=== PATIENT | female | born 1960 | race African-American/Black ===

== ENCOUNTER 2019-05-15 08:31 | Inpatient (IN) | payer OTHER ==
[2019-05-15] VITALS (8 sets, daily range): BP systolic 131–207; BP diastolic 87–122
[~2019-05-15] VITALS: Ht 154.9 cm; Wt 60.8 kg
[2019-05-15] MEDS ORDERED: LISINOPRIL10 MG PO (08:39)
[2019-05-15] MEDS ORDERED: METOPROLOL SUC100 MG PO (08:39)
[2019-05-15 09:05] LABS: HEMATOCRIT 37.3 % (37.0-47.0); HEMOGLOBIN 11.9 gm/dL (12.0-15.0); MCV 84.3 fL (80.0-100.0); PLATELET COUNT 204 thou/uL (150-400); RBC 4.42 mil/uL (4.20-5.00); RDW 15.3 % (10.5-14.5); WBC 5.9 thou/uL (4.0-11.0)
--- NOTE | 2019-05-15 09:10 | EKG ---
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 : 1960 Requested By: Aryan Weaver Order Number: [id number] MD: Ugo Keane Measurements Intervals [place] Rate: 84 P: 6 NC: 158 QRS: -3 QRSD: 84 T: 166 QT: 393 QTc: 465 Interpretive Statements Sinus rhythm Probable left atrial enlargement LVH with secondary repolarization abnormality No previous ECG available for comparison Electronically Signed On 05-15-2019 9:10:02 CDT by Ugo Keane [email or web address] ��������������������������������������������� <ELECTRONICALLY SIGNED> ���������������������������������������� By: Ugo Keane MD, [facility] ��������������������������������������������� 05/15/19 0910 0847 0847 Ugo Keane MD, FACC /EPI
[2019-05-15 09:13] LABS: CALCIUM 9.9 mg/dL (8.5-10.1); CREATININE 1.2 mg/dL (0.6-1.0); POTASSIUM 3.7 mmol/L (3.5-5.1)
[2019-05-15 09:19] LABS: APTT 26.1 Seconds (24.5-32.8); PROTIME 10.4 Seconds (9.3-11.4)
[2019-05-15 09:22] LABS: ALBUMIN 3.4 g/dL (3.4-5.0); MAGNESIUM 1.9 mg/dL (1.8-2.4); TOTAL BILIRUBIN 0.5 mg/dL (<0.1-1.0); TOTAL PROTEIN 8.2 g/dL (6.4-8.2); TROPONIN-I 0.38 ng/mL (<0.06)
--- NOTE | 2019-05-15 09:27 | NUR ---
RAAD RABAGO (DAUGHTER) [phone]
[2019-05-15 09:47] LABS: URINE BILIRUBIN NEGATIVE (Negative); URINE BLOOD NEGATIVE (Negative); URINE CLARITY CLEAR; URINE COLOR YELLOW; URINE GLUCOSE-RANDOM* NEGATIVE (Negative); URINE KETONES TRACE (Negative); URINE LEUKOCYTES-REFLEX NEGATIVE (Negative); URINE NITRITE-REFLEX NEGATIVE (Negative); URINE PROTEIN (DIPSTICK) 1+ (Negative); URINE SPECIFIC GRAVITY 1.015 (1.005-1.035)
[2019-05-15 09:53] LABS: AMP/METHAMP Negative (Negative); BARBITURATES Negative (Negative); BENZODIAZEPINES Negative (Negative); COCAINE Negative (Negative); METHADONE Negative (Negative); OPIATES Negative (Negative); PCP Negative (Negative)
[2019-05-15 09:53] LABS: ABSOLUTE NEUTROPHILS 3.1 thou/uL (1.4-8.2)
[2019-05-15 09:55] LABS: ANISOCYTOSIS SLIGHT
[2019-05-15 10:02] LABS: CASTS None Seen /LPF (None Seen); SQUAMOUS None Seen /LPF (0-3)
[2019-05-15 10:03] LABS: CRYSTALS None Seen /LPF (None Seen); URINE RBC None Seen /HPF (0-2)
[2019-05-15 10:04] LABS: URINE WBC-REFLEX 0-5 Rare /HPF (0-5)
[2019-05-15 10:05] LABS: BACTERIA-REFLEX None Seen /HPF (None Seen)
[2019-05-15 11:33] LABS: CHOLESTEROL 193 mg/dL (<200); HDL CHOLESTEROL 30 mg/dL (>40); LDL CHOLESTEROL 138 mg/dL (<100); TC:HDL 6.4 Ratio (Not establshd); TRIGLYCERIDE 127 mg/dL (<150); VLDL 25 mg/dL (<40)
--- NOTE | 2019-05-15 14:05 | 2DMMODE ---
[facility] [address] [place] [address] 2 D/M-MODE ECHOCARDIOGRAM Name: JANAK RABAGO Room #: 204-P [facility] IN [facility]#: [id number] ������������� Admission: 05/15/19 ������������� Attend Phys: Roberto Ugarte MD Discharge: ��� ������������� ��� Date of : 56 Date of Service: 05/15/19 1405 �� Report #: [id number] �������� ��������������������������������������������[id number] THIS REPORT FOR: //name// APPROVED REPORT Study performed: 05/15/2019 12:51:02 EXAM: Comprehensive 2D, Doppler, and color-flow Echocardiogram Patient Location: In-Patient Room #: 204 Status: routine BSA: 1.38 HR: 127 bpm BP: 107/70 mmHg Rhythm: NSR Other Information Study Quality: GoodAdequate Indications Hypertension/HDD 2D Dimensions RVDd: 26.54 mm IVSd: 13.10 (7-11mm) LVOT Diam: 18.64 (18-24mm) LVDd: 42.10 mm PWd: 14.14 (7-11mm) Ascending Ao: 33.62 (22-36mm) LVDs: 24.72 (25-40mm) Left Atrium: 35.73 (27-40mm) Aortic Root: 31.74 mm Volumes Left Atrial Volume (Systole) Single Plane 4CH: 36.07 mL Single Plane 2CH: 27.65 mL Aortic Valve AoV Peak Karlo.: 1.86 m/s AO Peak Gr.: 13.86 mmHg LVOT Max P.88 mmHg AO Mean Gr.: 5.18 mmHg LVOT Mean P.22 mmHg AO V2 Mean: 1.03 m/s LVOT Max V: 1.31 m/s AO V2 VTI: 29.63 cm LVOT Mean V: 0.83 m/s WHITNEY (VTI): 2.28 cm2 LVOT V1 VTI: 24.77 cm WHITNEY Vmax: 1.92 cm2 SV (LVOT): 67.57 mL [facility] [place] [address] [place] [address] 2 D/M-MODE ECHOCARDIOGRAM Name: JANAK RABAGO Room #: 204-P [facility] IN ..#: [id number] ������������� Admission: 05/15/19 ������������� Attend Phys: Roberto Ugarte MD Discharge: ��� ������������� ��� Date of : 56 Date of Service: 05/15/19 1405 �� Report #: [id number] �������� ��������������������������������������������[id number] Mitral Valve E/A Ratio: 0.6 MV Decel. Time: 235.33 ms MV E Max Karlo.: 0.70 m/s MV A Karlo.: 1.15 m/s MV PHT: 68.24 ms IVRT: 145.33 ms Pulmonary Valve PV Peak Karlo.: 0.96 m/s PV Peak Gr.: 3.66 mmHg Pulmonary Vein P Vein S: 0.54 m/s P Vein A: 0.32 m/s P Vein D: 0.30 m/s P Vein A Dur.: 114.2 msec P Vein S/D Ratio: 1.80 Tricuspid Valve TR Peak Karlo.: 2.64 m/s TR Peak Gr.: 27.95 mmHg Left Ventricle Left ventricle is grossly normal size. There is normal LV segmental wall motion. Mild concentric left ventricular hypertrophy. Left ventricular systolic function is normal. LVEF is 65-70%. Grade I - abnormal relaxation pattern. Right Ventricle The right ventricle is normal size. The right ventricular systolic function is normal. Atria Left atrium is mildly dilated. The right atrium size is normal. Aortic Valve The aortic valve is normal in structure. Trace aortic regurgitation. There is no aortic valvular stenosis. Mitral Valve The mitral valve is normal in structure. There is no mitral valve regurgitation noted. No evidence of mitral valve stenosis. Tricuspid Valve The tricuspid valve is normal in structure. Trace tricuspid regurgitation. Estimated PAP 31 mmHg. [facility] [address] [place] [address] 2 D/M-MODE ECHOCARDIOGRAM Name: JANAK RABAGO Room #: 204-P [facility] IN M.R.#: [id number] ������������� Admission: 05/15/19 ������������� Attend Phys: Roberto Ugarte MD Discharge: ��� ������������� ��� Date of : 56 Date of Service: 05/15/19 1405 �� Report #: [id number] �������� ��������������������������������������������[id number] Pulmonic Valve The pulmonary valve is normal in structure. There is no pulmonic valvular regurgitation. Great Vessels The aortic root is normal in size. The ascending aorta is normal in size. IVC is normal in size and collapses >50% with inspiration. Pericardium Trace pericardial effusion around right atrium. <Conclusion> Left ventricle is grossly normal size. Mild concentric left ventricular hypertrophy. Left ventricular systolic function is normal. Grade I - abnormal relaxation pattern. The right ventricle is normal size. Left atrium is mildly dilated. Trace aortic regurgitation. There is no mitral valve regurgitation noted. Trace tricuspid regurgitation. Estimated PAP 31 mmHg. ��������������������������������������������� <ELECTRONICALLY SIGNED> ���������������������������������������� By: Ry Mares MD ��������������������������������������������� 05/15/19 1405 1405 1405 Ry Mares MD /INF
--- NOTE | 2019-05-15 16:22 | NUR ---
PT ADMITTED TO CCU APPROX 1130 FROM ER. CONSENTS SIGNED. ADMISSION COMPLETE. ADMISSION STRIPS COMPLETE. VSS EXCEPT FOR ELEVATED BP, PROVIDERS AWARE. PT A&OX3. DROWSY. WILL CONTINUE TO MONITOR AND FOLLOW POC.
--- NOTE | 2019-05-15 17:00 | NUR ---
Case opened to follow for dc planning needs. Pt admitted with r/o cva. Neuro, cardiology, rehab medicine, and PT/OT/ST evals are pending. House Admin visited with the pt and her dtr Shilpa at bedside. Pt drowsy and knodding off during our conversation. The pt and her dtr have lived together for approx 12 years. The pt was working until last Jul 2018 when she had a stroke. She was dc'd to home with the dtr and family has been trying to help her with a [place] disability and [place]. The pt's dtr believes her ssd was approved but has not heard anything on her medicaid. The pt's sister Eva has been helping with this. Apparently the pt was getting her blood pressure meds from [facility] and normally lets her dtr know when she is out. Her dtr did not realize that she has been out for approx 3-4 weeks. She works Sunday thru 10 hr shifts and the pt is normally home alone. She walks with the meléndez or furnature and occassionaly with a cane or walker. The pt's sister takes her to her dr [facility]. [facility] [place] [place] [place] [place] [facility] They live in an apt with 2 steps in from the back side and 8-12 in the front. The pt has a hx of OR and previous strokes. Dtr tearful and feeling guilty about the pt not having her meds. Support provided. Pt will likely need some level of rehab and possible ltc placement. Dtr is also requesting a letter for her employer. Will f/u in the am.
--- NOTE | 2019-05-15 18:25 | NUR ---
ASSUMED CARE FOR PT ON ARRIVAL TO UNIT. ASSESSMENTS CHARTED. MEDS GIVEN PER NOV. A&OX4. VSS EXCEPT FOR ELEVATED BP WHICH PROVIDER IS AWARE OF. NO C/O PAIN. SWALLOW EVALUATED BY SPEECH, DIET CHANGED ACCORDINGLY. MEDS GIVEN IN PUDDING. PT USES BEDPAN. FAMILY VISITED IN EVENING AND SPOKE WITH CM. WILL CONTINUE TO MONITOR AND FOLLOW POC.
[2019-05-16 03:47] VITALS: BP 195/131
--- NOTE | 2019-05-16 05:13 | NUR ---
ASSESSMENT DOCUMENTED.PT A/OX4,MORE AWAKE,CALLS APPROPRIATELY.SLURRED SPEECH W/ FACIAL DROP.VSS.HYPERTENSIVE.MANAGED WITH MEDS,PT STATES HER BLOOD PRESSURE IS ALWAYS HIGH AND SHE HAS BEEN OUT OF BP MEDS.USES BEDPAN.PT STATES THAT SHE USES A WALKER AT HOME TO AMBULATE.DENIES PAIN OR ANY DISTRESS AT THIS TIME
[2019-05-16 05:28] LABS: ABSOLUTE NEUTROPHILS 3.1 thou/uL (1.4-8.2); BASOPHILS 0.7 % (0.0-2.0); EOSINOPHILS 0.4 % (0.0-3.0); HEMATOCRIT 33.3 % (37.0-47.0); HEMOGLOBIN 10.8 gm/dL (12.0-15.0); LYMPHOCYTES 38.1 % (24.0-44.0); MCH 27.3 pg (26.0-34.0); MCHC 32.5 g/dL (28.0-37.0); MCV 84.1 fL (80.0-100.0); MONOCYTES 7.6 % (1.0-8.0); PLATELET COUNT 179 thou/uL (150-400); POLYS 53.2 % (36.0-66.0); RBC 3.96 mil/uL (4.20-5.00); RDW 15.1 % (10.5-14.5); WBC 5.8 thou/uL (4.0-11.0)
[2019-05-16 05:45] LABS: MAGNESIUM 1.8 mg/dL (1.8-2.4); TROPONIN-I 0.44 ng/mL (<0.06)
[2019-05-16 05:51] LABS: POTASSIUM 2.9 mmol/L (3.5-5.1)
--- NOTE | 2019-05-16 07:42 | NUR ---
ASSUMED CARE OF PT APPROX 0715, TECH CAME TO ME AT 0742 TO SAY B/P [id number]. THIS WAS REPORTED OFF, NO HYDRALAZINE GIVEN YET A.M. B/P MEDS GIVEN BY FUR LINER. WILL ADM HYDRALAZINE AND RECHECK. DENIES ANY NEEDS AT THIS TIME
[2019-05-16 07:43] VITALS: BP 216/168
--- NOTE | 2019-05-16 09:14 | NUR ---
WOUND CARE HIGH RISK MAKENNA ASSESSMENT; ASSESSMENT WAS COMPLETED NO WOUNDS IDENTIFIED. THE PATIENT IS SOMEWHAT LIMITED AND LOW ENERGY. LOW BODY WT. SHE IS EATING AND THE ALBUMIN IS 3.4. THE PATIENT IS ALERT BUT ONLY NODDED HER HEAD FOR ME. RECOMMENDATION; CONSULT FIRE ASSISTANT, AND ADD A LOW AIR LOSS PUMP TO THE BED. DISCUSSED WITH EVERETTE
[2019-05-16 11:32] VITALS: BP 136/83
--- NOTE | 2019-05-16 13:50 | NUR ---
PATIENT HAS QUALIFYING DX FOR 5N, BUT MUST BE ABLE AND WILLING TO PARTICIPATE WITH THERAPIES. NO BED AVAILABLE FOR ACUTE REHAB UNTIL 05/20/19. WILL CONTINUE TO FOLLOW. THANK YOU FOR THIS REFERRAL.
--- NOTE | 2019-05-16 14:03 | NUR ---
[facility] Director visited with the pt's dtr Chad regarding dc planning efforts. 5N darryl initiated and they are following. No bed available til early next week. [facility] was able to visit with the pt/dtr. The pt has a [place] medicaid application on file with the state pending one verification. [facility] will help resolve this and the pt should be approved. Dtr concerned about the pt's over all condition and what her care needs will be at dc as she works fulltime. Options for hh, hbcs, and ltc placement discussed. Will follow.
[2019-05-16 16:53] VITALS: BP 161/103
[2019-05-16 19:56] VITALS: BP 162/108
[2019-05-17] VITALS (7 sets, daily range): BP systolic 135–212; BP diastolic 87–153
--- NOTE | 2019-05-17 05:50 | NUR ---
ALERT WITH CONFUSION.TRIES TO GET OUT OF BED TWICE THIS SHIFT.INCONTINENT. REPOSITIONED.BP ELEVATED.HYDRALAZINE GIVEN.IV FLUIDS INFUSING.MONITOR SHOWS SINUS RHYTHM.WILL CONTINUE POC.
--- NOTE | 2019-05-17 08:47 | NUR ---
PT IS A&0X4, VERY QUIET W/SPEECH, NEEDS TIME TO SPEAK. FOOD SET UP AND OPEN EVERYTHING. FAMILY VISITS ALL DAY. IVF RUNNING AND PT CAN USE CALL LIGHT AND ALSO KNOWS TO HIT THE SIDE OF THE BED IF SHE FEELS TOO WEAK TO HIT BUTTON. SEE SEPARATE INTERVENTIONS FOR ASSESSMENTS
--- NOTE | 2019-05-17 17:08 | HC ---
[facility] [place] [address] CONSULTATION Name: JANAK RABAGO Room #: 204-P ADM IN M.R.#: [id number] Admission: 05/15/19 ������������������ Attend Phys: Roberto Ugarte MD Discharge: ������������������ Date of : 56 Report #: [id number] THIS REPORT FOR: //name// CC: Roberto Ugarte [facility] unknown DATE OF SERVICE: 05/15/2019 HISTORY OF PRESENT ILLNESS: This is a 59-year-old female patient who was seen by me for the possibility of stroke. The history is not clear. The patient does not provide any history. One of the daughters is there, she provides some history, but history is not very clear. They said the patient had four strokes. The last one was in August. They noticed that the patient is unable to walk properly and was weaker what they think was on the right side, but I am not certain. They took her to Emergency Room at [facility]. Apparently, they dismissed this patient. I do not have any record from the [facility]. The family brought the patient to Emergency Room here after getting dismissed from [facility] and she was seen here. She has an obvious left facial palsy. They cannot tell me how much is new and how much is old. They said some was there, but this is definitely worse. I cannot tell in this patient what medication she is on. I have asked them to get the record from [facility]. REVIEW OF SYSTEMS: Only from the record. This patient has numerous medical problems. She had 4 strokes in the past. She has a history of hypertension, coronary artery disease, tobacco abuse, and the things have become worse for her according to the patient. She also apparently has chronic kidney disease. GFR is only 46. REVIEW OF SYSTEMS: A 14-point review of system was carried out as much as I can, with the family and this was a relevant 14-point review of system, the best we can get. PAST MEDICAL HISTORY: Positive for 4 strokes. FAMILY HISTORY: Unavailable. SOCIAL HISTORY: She apparently smokes. PHYSICAL EXAMINATION: Limited. She opens her eyes sometime follow the commands. She has left-sided weakness. She does not cooperate with sensation testing. Cardiac examinations appear noncontributory. She does not appear to be in any respiratory difficulty. Blood pressure is 132/93, pulse is 91, temperature is 98.1. LABORATORY DATA: White count is 5.9. Her MRI and CT was reviewed. MRI [address] [address] CONSULTATION Name: JANAK RABAGO Room #: 204-P [facility] IN .R.#: [id number] Admission: 05/15/19 ������������������ Attend Phys: Roberto Ugarte MD Discharge: ������������������ Date of : 56 Report #: [id number] demonstrated multiple strokes. The blood pressure was high when she came in, it is better now. IMPRESSION: Multiple acute cerebrovascular accidents. RECOMMENDATIONS: We will get the records from the [facility]. We will see what they did. This patient needs extensive workup for anything which can be further done about the CVA, but she has so many vascular risk factors. I will look at the records from [facility] and we might put her on dual-platelet therapy and she will need workup for any atrial fibrillation as an outpatient. I have discussed this patient with hospitalist and I am going to call them again and discussed with them again. About 50 minutes of time was spent taking care of this patient today and majority of that time was spent counseling and coordinating. ��������������������������������������������� <ELECTRONICALLY SIGNED> ���������������������������������������� By: Orestes Khan MD ��������������������������������������������� 05/17/19 1708 1450 0039 Orestes Khan MD /nt
--- NOTE | 2019-05-17 17:09 | EEG ---
[facility] [place] [address] ELECTROENCEPHALOGRAM Name: JANAK RABAGO Room #: 204-P ADM IN M.R.#: [id number] ������������������ Admission: 05/15/19 ������������������ Attend Phys: Roberto Ugarte MD Discharge: ������������������ Date of : 56 Report #: [id number] ����������������������������������������������������������������� [id number] THIS REPORT FOR: //name// CC: Roberto LORENZANA unknown DATE OF SERVICE: 05/16/2019 This patient is being evaluated for altered mental status. EEG was done by placing the electrode by standard 10-20 system of electrode placement. Both referential and sequential montages were used for recording. Background activity in this patient's EEG is about 8 Hz and 30 microvolts. The patient went to sleep that is associated with bilateral slowing. Photic stimulation is unremarkable. Even in the background. The patient does have some bilateral slowing. IMPRESSION: This patient's EEG is intermixed with theta range slowing on both sides. That is a nonspecific abnormality, which can occur with dementia, encephalopathy, effect of psychotropic medication, etc. Clinical correlation recommended. ���������������������������������������� <ELECTRONICALLY SIGNED> ���������������������������������������� By: Orestes Khan MD ��������������������������������������������� 05/17/191708 1600 01 Orestes Khan MD /nt
[2019-05-18 04:59] LABS: HEMOGLOBIN 11.5 gm/dL (12.0-15.0); MCV 84.4 fL (80.0-100.0); RBC 4.27 mil/uL (4.20-5.00); RDW 15.3 % (10.5-14.5); WBC 5.1 thou/uL (4.0-11.0)
[2019-05-18 05:00] VITALS: BP 191/106
--- NOTE | 2019-05-18 05:09 | NUR ---
ASSUMED PT CARE AT 1900 WITH TASHIAILY AT BEDSIDE. PT IS ALERT AND ORIENTED. DENIES ANY NEED. PT IS LAYING IN BED. FALL PRECAUTION IN PLACE. ASSESSMENT COMPLETED AND DOCUMENTED. VITAL SIGNS STABLE EXCEPT EWITH ELEVATION OF BLOOD PRESSURE. PHYSICIAN AWARE. SCHEDULED MEDS ADMINISTERED TO PT. PT IS ON SWALLOW PRECAUTION. TOLERATED PO INTAKE WITH APPLESAUCE, NO FURTHER NEEDS REQUESTED AT THIS TIME. CONTINUE TO MONITOR.
[2019-05-18 05:15] LABS: CREATININE 1.2 mg/dL (0.6-1.0); POTASSIUM 3.3 mmol/L (3.5-5.1)
[2019-05-18 07:35] VITALS: BP 180/110
[2019-05-18 08:30] VITALS: BP 136/93
[2019-05-18 11:30] VITALS: BP 136/93
[2019-05-18 15:30] VITALS: BP 134/89
--- NOTE | 2019-05-18 18:41 | NUR ---
ASSUMED CARE AT SHIFT CHANGE, ALERT AND ORIENTED X4. DENIES ANY DISCOMFORT OR PAIN. ASKING TO DRINK REGULAR WATER, AND THIS NURSE AND FAMILY EXPLAINED TO THE PATIENT WHY SHE CAN'T HAVE REGULAR WATER. SR, BP WAS ELEVATED THIS AM MEDICATED AND NOW WNL. AND WILL CONTINUE WITH POC.
[2019-05-18 19:40] VITALS: BP 154/109
[2019-05-19 04:47] VITALS: BP 171/107
[2019-05-19 04:57] LABS: HEMATOCRIT 35.2 % (37.0-47.0); HEMOGLOBIN 11.3 gm/dL (12.0-15.0); MCH 27.1 pg (26.0-34.0); MCHC 32.1 g/dL (28.0-37.0); MCV 84.5 fL (80.0-100.0); RBC 4.16 mil/uL (4.20-5.00); RDW 15.3 % (10.5-14.5); WBC 6.1 thou/uL (4.0-11.0)
--- NOTE | 2019-05-19 05:03 | NUR ---
ASSUMED PT CARE AT 1900 WITH NO SIGN OF DISTRESS NOTED. PT IS ALERT AND ORIENTED. NO FAMILY AT BEDSIDE. ASSESSMENT COMPLETESD AND CHARTED. SCHEDULED MEDS ADMINISTERED TO PT. FALL PRECAUTION IN PLACE. VITAL SIGNS STABLE. DENIES ANY FURTHER NEEDS AT THIS TIME.
[2019-05-19 05:18] LABS: CALCIUM 9.5 mg/dL (8.5-10.1); CREATININE 1.1 mg/dL (0.6-1.0); POTASSIUM 3.4 mmol/L (3.5-5.1)
[2019-05-19 07:45] VITALS: BP 192/118
[2019-05-19 11:35] VITALS: BP 169/114
[2019-05-19 12:06] LABS: ANA INTERPRETATION Negative (Negative)
[2019-05-19 16:00] VITALS: BP 176/107
--- NOTE | 2019-05-19 16:10 | NUR ---
VSS BP REMAINS 170-192/107-118. MD AWARE, TAKING PO MEDS WELL AND SLOWLY WITH APPLESAUCE. UP IN CHAIR AND WALKED WITH PT, WITH GAIT BELT, PT UNSTEADY BUT TOOK 10-15 STEPS TO BSC. PT EATING 25-50% OF MEAL BY SELF AFTER SET UP, EATS 25% OF ENSURE PUDDING. PT STILL INCONTINENT AT KENDELL OF STOOL AND URINE. WILL CONTINUE TO MONITER AND CARE FOR PT PER PLAN OF CARE.
[2019-05-19 18:09] LABS: SYPHILIS AB Negative (Negative)
[2019-05-19 20:00] VITALS: BP 146/97
[2019-05-20 04:00] VITALS: BP 176/117
--- NOTE | 2019-05-20 05:05 | NUR ---
ASSUMED PT CARE AT 1900 WITH NO SIGN OF DISTRESS NOTED. PT IS ALERT BUT CONFUSED. NO FALL AT BEDSIDE. FALL PRECAUTION IN PLACE. PT IS SITTING IN CHAIR. PT IS TRANSFERRED FROM CHAIR TO BED. ASSESMENT COMPLETED AND DOCUMENT. VITAL SIGNS STABLE. SCHEDULED MEDS ADMINISTERED PT. PT TOLERATED PO INTAKE. DENIES ANY PAIN. NO FURTHER NEEDS REQUESTED AT THIS TIME.
[2019-05-20 05:22] LABS: CALCIUM 10.1 mg/dL (8.5-10.1); CREATININE 1.1 mg/dL (0.6-1.0); POTASSIUM 4.2 mmol/L (3.5-5.1)
[2019-05-20 07:45] VITALS: BP 191/121
--- NOTE | 2019-05-20 10:26 | NUR ---
TENATIVE PLAN FOR 5N TRANSFER TODAY HOWEVER PATIENT WITH INCREASE LETHARGY AND RESPONSIVENESS. PLAN TO HOLD TRANSFER PER PHYS.
[2019-05-20 11:50] VITALS: BP 172/114
[2019-05-20 13:01] LABS: HEMATOCRIT 38.1 % (37.0-47.0); HEMOGLOBIN 12.3 gm/dL (12.0-15.0); MCH 27.1 pg (26.0-34.0); MCHC 32.2 g/dL (28.0-37.0); MCV 84.3 fL (80.0-100.0); RBC 4.52 mil/uL (4.20-5.00); RDW 15.4 % (10.5-14.5); WBC 4.4 thou/uL (4.0-11.0)
[2019-05-20 14:30] VITALS: BP 152/101; BP 152/105
[2019-05-20 16:10] VITALS: BP 140/100
--- NOTE | 2019-05-20 17:13 | NUR ---
Patients transfer to 5N on hold. Sp with dtr. She is aware of dc on hold.
--- NOTE | 2019-05-20 18:45 | NUR ---
PT CARE ASSUMED APPROX 0700. PT DIFFICULT TO AROUSE THIS AM. WAS NOT RESPODING TO VERBAL CUES OR COMMANDS REPORTED BY PREVIOUS NURSE. DR CAMARENA WAS NOTIFIED AND ORDERED HEAT CT. NEURO WAS ALSO CONTACTED AND ORDERED MRI. NEURO ROUNDED AND CONFIRMED NEW INFARCTS WERE NOTED ON PT DIAGNOSTIC STUDIES. PT'S DAUGHTER-NEXT OF KIN WAS CONTACTED AND GIVEN CLINICAL UPDATE. SHE DENIES QUESTIONS OR CONCERNS AFTER. DUE TO PT CHANGE IN LOC, MEDS WERE CHANGED TO IV, IVF ORDERED, AND MEALS WERE HELD. PT BECAME MORE ALERT WHEN FAMILY ARRIVED AND SEEMED SAFE TO EAT. PT CONTINUES TO NOT SUSTAIN WAKEFULENESS VERY LONG BUT FOLLOWING COMMANDS AND RESPONDING APPROPRIATELY AT THIS TIME. WILL MONITOR. CARDENE GTT WAS NEVER STARTED AFTER ORDERED SINCE PT'T STARTING BP WAS ALREADY WITHIN [employer] PARAMATERS FOR GTT. WILL CONTINUE TO MONITOR. VSS AT THIS TIME. TURNING PT Q2HRS AND PRN. PT DENIES PAIN AND SOA. NO DISTRESS NOTED.
[2019-05-20 19:12] LABS: PROTIME 10.6 Seconds (9.3-11.4)
[2019-05-20 20:00] VITALS: BP 137/98
[2019-05-21] VITALS (10 sets, daily range): BP systolic 116–162; BP diastolic 85–117
[2019-05-21 02:57] LABS: CALCIUM 9.1 mg/dL (8.5-10.1); CREATININE 1.2 mg/dL (0.6-1.0); POTASSIUM 3.7 mmol/L (3.5-5.1)
--- NOTE | 2019-05-21 08:32 | NUR ---
PT REMAINED A&O THRU THE SHIFT, VSS, NO C/O PAIN, TURNING PRN AND Q2HRS, TOLERATING NECTER THICK LIQUIDS, LRG LIQUID STOOL/INCON'T, ASSISTS WITH TURNS, REPORT GIVEN TO THE NEXT SHIFT TO CON'T PPOC.
--- NOTE | 2019-05-21 14:54 | NUR ---
patient stable to transfer to 5N acute rehab today. her medicaid is active. 5N rec auth. Left dtr Shilpa a message to call unit to alert patient will dc today to 5N room [phone].
[2019-05-21] MEDS ORDERED: ACETAMINOPHEN325 M1 PO (16:28)
[2019-05-21] MEDS ORDERED: CHLORTHALIDONE25 MG PO (16:28)
[2019-05-21] MEDS ORDERED: AMLODIPINE BESY10 MG PO (16:28)
[2019-05-21] MEDS ORDERED: PANTOPRAZOLE SO40 M1 PO (16:28)
[2019-05-21] MEDS ORDERED: BENAZEPRIL HCL20 MG PO (16:28)
[2019-05-21] MEDS ORDERED: MIRALAX17 GM PO (16:28)
[2019-05-21] MEDS ORDERED: ATORVASTATIN CA80 MG PO (16:28)
--- NOTE | 2019-05-21 18:01 | NUR ---
ASSUMED PT CARE AT APPROXIMATELY 0700. PT A&O X3, NOT TO SITUATION. ASSESSMENT CHARTED. FALL PRECAUTIONS IN PLACE. PT STATES SHE DOES NOT HAVE PAIN. FREQUENT REORIENTATION. ASSISTING WITH MEALS AND ENCOURAGING PT TO EAT AND DRINK. VITAL SIGNS STABLE. BLOOD SUGARS STABLE. PT UP TO CHAIR THROUGHOUT SHIFT. Q2 TURNS. PT DISCHARGING TO 5N REHAB. TELE DC. PT RECEIVED DISCHARGE PAPERWORK AND EDUCATION. PT STATED UNDERSTANDING OF TRANSPORT TO 5 FOR REHAB. PT HAS INCREASED ALERTNESS COMPARED TO YESTERDAY. PT ALSO HAS AN INCREASED ENERGY LEVEL COMPARED TO YESTERDAY. PT'S BP MEDS HELD DUE TO BP LEVEL OUTSIDE BP PARAMETERS - DR. LOPEZ NOTIFIED. PT VS STABLE AND ASYMPTOMATIC. DR. LOPEZ STATED TO KEEP MONITORING PT'S BP AND TO HOLD BP MEDS. HEPARIN DRIP DC AT 1700. REPORT GIVEN TO RN ON 5N. RN DENIED HAVING FURTHER QUESTIONS.
== END 2019-05-21 18:26 | DRG 64 ==
LOC: ER 08:31 → 2N 10:35 → EROBS 10:35 → 2N 11:54
PROVIDERS: Emergency Medicine; Hospitalist; Nurse Practitioner; Psychiatry & Neurology Neurology; Psychiatry & Neurology Neuromuscular Medicine; ADMIT Hospitalist
DX: I63.411 Cerebral infarction due to embolism of right middle cerebral artery (principal); I21.A1 Myocardial infarction type 2; I67.4 Hypertensive encephalopathy; N17.9 Acute kidney failure, unspecified; R13.10 Dysphagia, unspecified; I16.0 Hypertensive urgency; I12.9 Hypertensive chronic kidney disease with stage 1 through stage 4 chronic kidney disease, or unspecified chronic kidney disease; E78.5 Hyperlipidemia, unspecified; N18.9 Chronic kidney disease, unspecified; R79.89 Other specified abnormal findings of blood chemistry; E87.6 Hypokalemia; I25.10 Atherosclerotic heart disease of native coronary artery without angina pectoris; F17.210 Nicotine dependence, cigarettes, uncomplicated; I25.2 Old myocardial infarction; Z95.5 Presence of coronary angioplasty implant and graft; Z86.73 Personal history of transient ischemic attack (TIA), and cerebral infarction without residual deficits; Z79.899 Other long term (current) drug therapy
CPT/HCPCS: 10081; 10112

== ENCOUNTER 2019-05-20 09:18 | Inpatient (IN) | payer OTHER ==
[~2019-05-20] VITALS: Ht 154.9 cm; Wt 59.9 kg
[~2019-05-20 09:18] MED LIST: LISINOPRIL10 MG PO; METOPROLOL SUC100 MG PO
[2019-05-21] MEDS ORDERED: BENAZEPRIL HCL20 MG PO (16:28)
[2019-05-21] MEDS ORDERED: AMLODIPINE BESY10 MG PO (16:28)
[2019-05-21] MEDS ORDERED: ACETAMINOPHEN325 M1 PO (16:28)
[2019-05-21] MEDS ORDERED: CHLORTHALIDONE25 MG PO (16:28)
[2019-05-21] MEDS ORDERED: MIRALAX17 GM PO (16:28)
[2019-05-21] MEDS ORDERED: ATORVASTATIN CA80 MG PO (16:28)
[2019-05-21] MEDS ORDERED: PANTOPRAZOLE SO40 M1 PO (16:28)
--- NOTE | 2019-05-22 05:43 | NUR ---
PATIENT ARRIVED ON UNIT AT 1820. PATIENT ALERT AND ORIENTED [place], PLACE AND TIME. ACCUCHECK WAS 100 SO NO INSULIN COVERAGE. BP WAS 153/97. PATIENT IS A FEEDER WITH [facility] ALTERED DIET AND NECTAR THICK LIQ. SHE IS TO USE NO STRAWS. DENIES PAIN. SLEPT OFF AND ON DURING NIGHT.
[2019-05-22 06:21] LABS: HEMATOCRIT 36.9 % (37.0-47.0); MCH 27.6 pg (26.0-34.0); MCHC 32.6 g/dL (28.0-37.0); MCV 84.6 fL (80.0-100.0); RBC 4.36 mil/uL (4.20-5.00); RDW 15.3 % (10.5-14.5); WBC 5.5 thou/uL (4.0-11.0)
[2019-05-22 06:26] LABS: CALCIUM 9.5 mg/dL (8.5-10.1); CREATININE 1.1 mg/dL (0.6-1.0); POTASSIUM 3.9 mmol/L (3.5-5.1)
[2019-05-22 06:31] LABS: INR 1.1
--- NOTE | 2019-05-22 09:27 | NUR ---
ASSUMED CARE AT 0700 THIS MORNING. PT. SITTING IN CHAIR, EYES CLOSED. LLL HAS SOME COURSE SOUNDS. THE REST OF THE LUNGS SOUND CLEAR. PT. DENIES PAIN. SHE IS VERY SLOW TO RESPOND TO QUESTIONS, BUT DOES ANSWER. SHE IS HERE FROM THE 2ND FLOOR WITH ACUTE MULTIPLE CVAS. NO MEDICATION ORDERS AT THIS WRITING. DR. MIGUE SOOD. SHE IS INCONTINENT OF BOWEL AND BLADDER.PT. IS A FALL RISK. OT WITH THE PATIENT AT THIS MOMENT.
[2019-05-22 10:10] VITALS: BP 117/84
--- NOTE | 2019-05-22 13:50 | NUR ---
chart review, cm tried to visit with pt x 2 she cont to close eye during visit. noted slow verbal 1 word communication. intro to cm, dcp and team meeting, pt stated " ok"/maureen and closed her eyes. per chart, she lives home with daughter since need assist rt past health hx, daughter deion works outside home. pt stay home alone, 2 steps to enter home from back and 8-12 steps to enter from front of home. used to use furniture and meléndez to hold onto to walk. will cont following as needed for dc needs.
[2019-05-22 19:36] VITALS: BP 129/77
[2019-05-23 19:30] VITALS: BP 133/94
--- NOTE | 2019-05-23 20:54 | NUR ---
PATIENT ALERT AND ORIENTED TO SELF AND LOCATION BUT SLOW TO RESPOND. BRUNO AT BEDSIDE THIS EVENING. PATIENT COOPERATIVE WITH POC.
--- NOTE | 2019-05-24 03:29 | NUR ---
PT IN BED AND RESTING QUIETLY. UP TO BSC WITH ASSIST. A+O TOOK HS MEDS W/O PROBLEM. BS 95 AT HS. SLEPT WELL THROUGH THE NIGHT.
[2019-05-24 08:20] VITALS: BP 108/81
--- NOTE | 2019-05-24 19:44 | NUR ---
ASSUMED CARE OF PT AT 0715. PT IS A&OX3-4 AND VITAL SIGNS ARE STABLE. PT UP TO ALL MEALS AND SUPERVISED FOR ALL PO INTAKE. ACCU CHECKS ACHS. DENIES PAIN AND PARTICIPATED IN SCHEDULED THERAPIES. FALL PRECAUTIONS IN PLACE AND NURSING WILL CONTINUE TO MONITOR.
[2019-05-24 19:47] VITALS: BP 124/74
--- NOTE | 2019-05-25 04:15 | NUR ---
PT ASSESSMENT DONE AND VSS. MEDS GIVEN AND WELL TOLERATED. FALL PRECAUTIONS IN PLACE. SLEEPING WELL. WILL CONTINUE TO MONITOR.
[2019-05-25 08:00] VITALS: BP 137/89
[2019-05-25 20:32] VITALS: BP 109/76
--- NOTE | 2019-05-25 20:55 | NUR ---
ASSUMED CARE OF PT AT 0715. PT IS A&0X3-4 AND VITAL SIGNS ARE STABLE. PT DENIES PAIN AND PARTICIPATED IN SCHEDULED THERAPIES. ACCU CHECKS D/C'D BY PROVIDER. PT UP TO ALL MEALS AND WAS APPROPRAITE WITH STAFF. FALL PRECAUTIONS IN PLACE AND NURSING WILL CONTINUE TO MONITOR.
--- NOTE | 2019-05-26 00:26 | NUR ---
PT ASSESSMENT DONE AND VSS. MED GIVEN AND WELL TOLERATED. FALL PRECAUTIONS IN PLACE. SLEEPING WELL. WILL CONTINUE TO MONITOR.
[2019-05-26 07:40] VITALS: BP 137/80
--- NOTE | 2019-05-26 12:48 | NUR ---
ASSUMED CARE AT 0700. PATIENT IS ALERT AND ORIENTEDX4. PATIENT HAS LEFT SIDED WEAKNESS. PATIENT HAS LEFT SIDED FACIAL DROOP. PATIENT IS UP IN W/C FOR MEALS. LUNGS ARE CLEAR. ABD IS SOFT WITH BSX4. PATIENT IS UP WITH WALKER AND GAIT BELT AND SBA. FALL AND SAFETY PROTOCOLS IN PLACE. DENIES ANY PAIN AT THIS TIME. CONTINUES TO PROGESSS SLOWLY TOWARDS D/C GOALS. WILL CONTINUE TO MONITER.
[2019-05-26 19:09] VITALS: BP 122/80
--- NOTE | 2019-05-26 21:05 | HC ---
[facility] [place] [address] CONSULTATION Name: JANAK RABAGO Room #: [facility] ADM IN M.R.#: [id number] Admission: 05/21/19 Attend Phys: Harry Grimes MD Discharge: Date of : 56 Report #: [id number] THIS REPORT FOR: //name// CC: Harry Grimes [facility] unknown DATE OF SERVICE: 05/24/2019 NEUROBEHAVIORAL STATUS EXAMINATION ATTENDING PHYSICIAN: Harry Grimes M.D. NURSING INSTRUCTOR: Bashir Cohen, PhD. CLINICAL PRESENTATION: The patient is a 59-year-old -Sammarinese female admitted to the rehabilitation unit at [facility] for comprehensive inpatient rehabilitation program to improve functional mobility, activities of daily living and self-care and mental status secondary to cerebrovascular accident. She presented to the hospital after a fall at her home. An MRI of the brain with and without contrast revealed multiple acute cerebrovascular accidents. During her hospital stay, she had a period of increased confusion and obtunded. A followup CT revealed a progression of the right middle cerebral artery stroke. Her assessment on admission to the rehab unit is multiple acute cerebrovascular accidents with progression of a right middle cerebral artery stroke, history of cerebrovascular accidents x 4 with facial droop, dysphagia, left-sided weakness, uncontrolled hypertension, hyperlipidemia, coronary artery disease with previous stent and tobacco abuse. A complete description of her medical condition, history and medication can be found in her medical record. Neuropsychological consultation was requested to provide assistance in the assessment of cognitive and emotional status and to provide recommendations and services. Prior to this most recent medical event, she was living with the assistance of her daughter in her home. The patient is reported to have been by herself several hours of the day as the daughter works outside the home. The patient reports having been a high school graduate and working in "[employer]." However, she is an uncertain historian as she was quite drowsy and intermittently unresponsive during the interview. TECHNIQUES UTILIZED: Clinical interview, review of medical records, staff consultation and behavioral observation, attempted mini mental status exam. EXAMINATION FINDINGS: The patient was very fatigued and sluggish during the interview. Her responses were minimal and she required much encouragement to maintain orientation. She frequently closed her eyes. I am uncertain as to [facility] [address] [place] [address] CONSULTATION Name: JANAK RABAGO Room #: 504-1 ADM IN M.R.#: [id number] Admission: 05/21/19 Attend Phys: Harry Grimes MD Discharge: Date of : 56 Report #: [id number] whether she was being cooperative or unable to maintain an awake level of responding. At this time, the patient is poorly oriented and very sleepy and fatigued. She does not maintain a sustained focus of attention. DIAGNOSTIC IMPRESSION: Delirium, acute, hypoactive. 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 Tobacco abuse by history. RECOMMENDATIONS: Continued neuropsychological consultation to assist in the assessment of cognitive status. At this time, her level of attention, concentration and orientation is inconsistent and variable, likely secondary to the delirium. A followup neuropsych assessment to clarify cognitive status will be of benefit when the patient is more alert and the delirium has resolved. At this time, she requires 24-hour care that includes management of medication, nutrition and finances. Family education will likely be necessary as the patient's previous level of functioning is going to be much different from her current presentation. Thank you very much for allowing me to provide the consultation on this patient. <ELECTRONICALLY SIGNED> By: Bashir Cohen, PhD 05/26/19 [id number] Bashir Cohen, PhD /nt
--- NOTE | 2019-05-27 00:55 | NUR ---
PT ALERT AND ORIENTED X 4 AT START OF SHIFT. CONFUSED THE NIGHT GOES ON. IMPULSIVE AT TIMES. LEFT SIDED WEAKNESS AND FACIAL DROOP NOTED. PT TOOK HS MEDS IN APPLESAUCE WITHOUT DIFFICULTY. PT DENIES PAIN OR DISCOMFORT. BED ALARM ON FOR SAFETY. PT APPEARS TO BE SLEEPING ON HOURLY ROUNDS.
[2019-05-27 07:30] VITALS: BP 102/72
--- NOTE | 2019-05-27 12:23 | NUR ---
ASSUMED CARE AT 0700. PATIENT IS ALERT AND ORIENTED 2-3, WITH SOME CONFUSION AT TIMES AND SOME IMPULSIVENESS. PATIENT HAS SOME LEFT SIDED WEAKNESS R/T MULTIPLE CVA'S. UP TO THE DINING ROOM PER W/C FOR MEALS. FALL AND SAFETY PROTOCOLS IN PLACE. DENIES ANY PAIN. PATIENT TAKES MEDS WHOLE IN APPLESAUCE. PATIENT IS UP WITH ASSIST OF 1 STAFF AND GAIT BELT AND WALKER TO W/C. PATIENT CONTINUES TO PROGESS TOWARDS D/C GOALS. WILL CONTINUE TO MONITER.
--- NOTE | 2019-05-27 13:39 | NUR ---
team meeting, recommendation: re team, discuss with daughter to see if there is extra assistance at home while daughter works.
[2019-05-27 19:12] VITALS: BP 116/73
--- NOTE | 2019-05-28 01:07 | NUR ---
PT ALERT AND ORIENTED X 2. UP IN W/C DURING EVENING. TRANSFERRED TO BED AT HS WITH ASSIST X 1. INCONT OF URINE. PT TOOK HS MEDS IN APPLESAUCE WITHOUT DIFFICULTY. AMLODIPINE AND LISINOPRIL HELD AT HS PER PARAMETERS. LEFT SIDED WEAKNESS AND FACIAL DROOP. PT DENIES PAIN OR DISCOMFORT. BED ALARM ON FOR SAFETY. PT APPEARS TO BE SLEEPING ON HOURLY ROUNDS.
[2019-05-28 08:00] VITALS: BP 129/72
--- NOTE | 2019-05-28 10:00 | NUR ---
DISCHARGE PLANNING. ANTICIPATED DISCHARGE PLANNED FOR NEXT WEEK. PATIENT WILL NEED GOVERNMENT RELATIONS MANAGER CARE PLACEMENT AT DISCHARGE. PATIENT REFERRAL FAXED TO [facility] PER REQUEST. CALL PLACED TO SHIRIN AHUJA TO NOTIFY. AWAITING RESPONSE. FOLLOWING TO ASSIST.
--- NOTE | 2019-05-28 14:16 | NUR ---
ASSUMED CARE OF PT AT 0715. PT IS ALERT AND ORIENTED TO PERSON, PLACE AND TIME, VITAL SIGNS ARE STABLE. UP FOR ALL MEALS WITH 100% SUPERVISION. INCONTINENT OF BLADDER. DENIES PAIN AND PARTICIPATED IN SCHEDULED THERAPIES. MEDICAITONS CRUSHED IN PUREE, TOLERATED WELL. FALL PRECAUTIONS IN PLACE AND NURSING WILL CONTINUE TO MONITOR.
--- NOTE | 2019-05-28 14:39 | NUR ---
Patient participated in community reintegration on 05/28/19 with SPEE[facility] THERAPY. Refer to documentation by [facility]ERAP[facility].
[2019-05-28 19:45] VITALS: BP 146/94
--- NOTE | 2019-05-29 02:42 | NUR ---
ASSUMED CARE FROM DAY SHIFT PT ALERT TO SELF AND SITUATION BUT FORGETFUL AT TIMES AND ATTEMTED TO CLIMB OUT OF BED , ALARM ON FOR SAFETY , PT INCONTINENT OF URINE THIS SHIFT, SKIN INTACT. RESTING WELL THROUHGOUT HOURLY ROUNDS, WILL CONTINUE WITH CURRENT PLAN OF CARE.
[2019-05-29 05:50] LABS: ABSOLUTE NEUTROPHILS 3.5 thou/uL (1.4-8.2); BASOPHILS 0.9 % (0.0-2.0); EOSINOPHILS 1.2 % (0.0-3.0); HEMATOCRIT 33.1 % (37.0-47.0); HEMOGLOBIN 10.8 gm/dL (12.0-15.0); LYMPHOCYTES 38.3 % (24.0-44.0); MCH 27.2 pg (26.0-34.0); MCHC 32.5 g/dL (28.0-37.0); MCV 83.7 fL (80.0-100.0); MONOCYTES 8.4 % (1.0-8.0); PLATELET COUNT 209 thou/uL (150-400); POLYS 51.2 % (36.0-66.0); RBC 3.96 mil/uL (4.20-5.00); RDW 15.1 % (10.5-14.5); WBC 6.8 thou/uL (4.0-11.0)
[2019-05-29 06:25] LABS: CALCIUM 9.8 mg/dL (8.5-10.1); CREATININE 1.1 mg/dL (0.6-1.0); POTASSIUM 4.4 mmol/L (3.5-5.1)
--- NOTE | 2019-05-29 09:46 | NUR ---
ASSUMED CARE OF PT AT 0715. PT IS ALERT AND ORIENTED TO PERSON, PLACE, AND TIME. VITAL SIGNS ARE STABLE. PT UP FOR 100% SUPERVISION WITH MEALS. DENIES PAIN AND IS PARTICIPATING IN THERAPIES. FALL PRECAUTIONS IN PLACE AND NURSING WILL CONTINUE TO MONITOR.
[2019-05-29 10:00] VITALS: BP 139/90
--- NOTE | 2019-05-29 13:06 | H ---
[facility] [place] [address] HISTORY AND PHYSICAL Name: JANAK RABAGO Room #: 504-1 ADM IN M.R.#: [id number] Admission: 05/21/19 Attend Phys: Harry Grimes MD Discharge: Date of : 56 Report #: [id number] THIS REPORT FOR: //name// CC: Harry Grimes [facility] unknown DATE OF SERVICE: 05/21/2019 HISTORY OF PRESENT ILLNESS: This is a 59-year-old -[place] female who presented to the hospital initially after a fall at home. She was somnolent on arrival. Initial CT of the head was negative. Blood pressure was elevated on arrival. MRI of the head did reveal multiple acute cerebrovascular accidents. She was seen by Neurology, Cardiology and Geriatrics. During her hospital stay, she had a period of increased confusion and was obtunded. Followup CT of the head shows progression of the RMCA stroke. The patient required heparin IV initially when she was unable to take oral. She has been transitioned to Xarelto as she is more awake and able to take p.o. Cardiology plans for a 30-day event monitor outpatient. Due to her debility, she is now admitted to acute inpatient rehabilitation for physical, occupational and speech therapies. Today, the patient denies headache or dizziness or blurred vision. She denies cough or shortness of air. She denies abdominal pain, nausea or constipation. She denies dysuria. She denies any arthritic pain. She reports the appetite is so-so. PAST MEDICAL HISTORY: CVA x 4, hypertension, renal disease, vascular disease, tobacco abuse, coronary artery disease, history of medication noncompliance. SOCIAL HISTORY: Prior status, the patient was living at home with her daughter. She is alone during the daytime when the daughter works 4 days a week. She utilized a cane or a front wheel walker as needed, but mostly utilized furniture around the home. I am not clear on what deficits she had from previous CVAs. The patient was independent with ADLs and the IADLs were provided. CODE STATUS: Full code. ALLERGIES: No known drug allergies. CURRENT MEDICATIONS: Aspirin 81 mg daily, Xarelto 15 mg daily, chlorthalidone 12.5 mg daily, Norvasc 10 mg daily, Lipitor 80 mg at bedtime, magnesium 64 mg twice a day, metoprolol succinate 100 mg daily, Protonix 40 mg daily, insulin sliding scale a.c. and at bedtime, lisinopril 20 mg twice a day, hydralazine p.r.n., MiraLax p.r.n., Tylenol p.r.n., nitroglycerin p.r.n. and Zofran p.r.n. HABITS: No illicit drug use, no alcohol use, is a tobacco smoker. REVIEW OF SYSTEMS: Remainder of 14-point review of systems negative except as [facility] [address] [place] [address] HISTORY AND PHYSICAL Name: JANAK RABAGO Room #: 504-1 ADM IN M.R.#: [id number] Admission: 05/21/19 Attend Phys: Harry Grimes MD Discharge: Date of : 56 Report #: [id number] listed in HPI. PHYSICAL EXAMINATION: VITAL SIGNS: Blood pressure 153/97, pulse of 76, temperature 98.1, 99% O2 sat on room air. GENERAL: She is awake, alert. She is oriented to person. She tells me she is in the hospital. I asked her why, she says to get better. She does not report that she has had a stroke. She is able to tell me that this is the month of May. HEENT: Head is normocephalic. Eyes: EOMs are mostly intact, some slow response and requires cueing, but can follow. No nystagmus. NECK: No lymphadenopathy. CARDIAC: Regular rate and rhythm, S1, S2. LUNGS: Some coarse rhonchi on the left lower lobe especially, otherwise clear on the right. ABDOMEN: Bowel sounds are positive. She is soft, nontender, nondistended. GENITOURINARY: No CVA tenderness. SKIN: Warm, dry and intact. NEUROLOGIC: She does have a facial droop. Her left upper extremity is weaker than the right. She has decreased left ux lead strength and decreased functional range of motion on the left upper Functional range of motion of the bilateral lower extremities. Negative Homans sign. No calf tenderness, no edema. Sit to stand with mod assist, mod assist to walk 10 feet with front-wheeled walker. Bed mobility, max assist. Lower extremity dressing, dependent. Bathe is max assist. PSYCHIATRIC: Flat affect. Short one-word answer responses. LABORATORY DATA: From 05/22/2019, sodium 139, potassium 3.9, BUN 15, creatinine 1.1. WBC is 5.5, hemoglobin 12, hematocrit 36.9, platelets 215. ASSESSMENT: 1. Multiple acute cerebrovascular accidents with progression of RMCA stroke, history of cerebrovascular accidents x 4, facial droop. 2. Dysphagia. 3. Left-sided weakness. 4. Uncontrolled hypertension. 5. Hyperlipidemia. 6. Coronary artery disease with previous stent. 7. Tobacco abuse. PLAN: The patient has been admitted to acute inpatient rehabilitation for physical, occupational and speech therapies. She will have Neurology, Cardiology, Hospitalist and Geriatrics continue to follow the patient on the Rehab Unit. She will have a team conference next Sunday with Social Work Services following for discharge planning needs. To monitor that left lower lobe, we may need to do a followup chest x-ray. We will defer to Hospitalist [facility] [address] [place] [address] HISTORY AND PHYSICAL Name: JANAK RABAGO Room #: 504-1 ADM IN M.R.#: [id number] Admission: 05/21/19 Attend Phys: Harry Grimes MD Discharge: Date of : 56 Report #: [id number] services for further medical management. She has anticoagulation and SCDs for further prophylaxis. Please see complete orders. <ELECTRONICALLY SIGNED> By: SETH Mane 05/29/19 [id number] SETH Mane /nt
--- NOTE | 2019-05-29 14:00 | NUR ---
sid here to visit with monika and shabbir about medicaid and no rehab benefits. sid is able to accept when dc from acute rehab. monika and shabbir completed dpoa paper work and was notarized here on acute rehab.
--- NOTE | 2019-05-29 15:41 | NUR ---
I have reviewed the documentation by EMIR Carrington from 05/29/19 to 05/29/19 and I concur with it. DENEEN COE
--- NOTE | 2019-05-29 23:19 | NUR ---
PT ASSESSMENT DONE AND VSS. MEDS GIVEN AND WELL TOLERATED. FALL PRECAUTIONS IN PLACE. PT TOLD THE STAFF THAT SHE WAS "GOING HOME TONIGHT". SLEEPING WELL. WILL CONTINUE TO MONITOR.
[2019-05-30 07:30] VITALS: BP 142/89
--- NOTE | 2019-05-30 16:22 | NUR ---
I have reviewed the documentation by EMIR Carrington from 05/30/19 to 05/30/19 and I concur with it. DENEEN COE
--- NOTE | 2019-05-30 18:29 | NUR ---
ASSUMED CARE OF PT AT 0715. PT IS ALERT AND ORIENTED TO PERSON, PLACE, AND TIME. VITAL SIGNS ARE STABLE. PT DENIES PAIN AND PARTICIPTED IN THERAPIES. PT UP TO ALL MEALS WITH FULL SUPERVISION. FALL PRECAUTIONS IN PLACE AND NURSING WILL CONTINUE TO MONITOR.
[2019-05-30 19:05] VITALS: BP 124/66
--- NOTE | 2019-05-30 22:37 | NUR ---
PT ASSESSMENT DONE AND VSS. MEDS GIVEN AND WELL TOLERATED. FALL PRECAUTIONS IN PLACE. SLEEPING WELL. WILL CONTINUE TO MONITOR.
[2019-05-31 08:00] VITALS: BP 143/83
[2019-05-31 09:39] LABS: URINE BILIRUBIN NEGATIVE (Negative); URINE BLOOD NEGATIVE (Negative); URINE CLARITY CLEAR; URINE COLOR YELLOW; URINE GLUCOSE-RANDOM* NEGATIVE (Negative); URINE KETONES NEGATIVE (Negative); URINE LEUKOCYTES-REFLEX TRACE (Negative); URINE NITRITE-REFLEX NEGATIVE (Negative); URINE PROTEIN (DIPSTICK) NEGATIVE (Negative); URINE SPECIFIC GRAVITY <= 1.005 (1.005-1.035); URINE UROBILINOGEN 0.2 E.U./dl (0.2-1.0)
--- NOTE | 2019-05-31 11:34 | NUR ---
ASSUMED CARE OF PT AT 0715. VSS ON RA. NIGHT NURSE SAID PT SLEPT BETTER WITH MELATONIN INCREASE TO 10MG. PT IS ALERT AND ORIENTED TO PERSON, PLACE, AND TIME. PT UP TO DINNING ROOM ATE 50% BREAKFAST WITH SUPERVION. WALKED WITH PT AND SITTING IN RECLINER AT THIS MOMENT. UP WITH MOD ASSIST WITH A WALKER AND GAITBELL. UA OBTAINED PER NIGHT NURSE SUGGESTED. PT INCONT BLADDER AT NIGHT AND URINATE A LOT AT NIGHT. AND SUGGEST EXTERNAL CATH IF POSSIBLE. ENCOURAGED PT TO CALL WHEN NEEDS TO GO TO [facility] AND WILL CONTINUE TO MONITOR NEEDS FOR EXTERNAL CATH. PT DENIES PAIN AND PARTICIPTED IN THERAPIES. OFFERED SUPPORTIVE CARE. ENCOURAGED PT TO VOICE HER NEEDS. DISCUSSED ABOUT CARE PLAN WITH PT. PT CONTINUE TO PARTICIPATE WITH THERAPY TOWARD DISCHARGE GOALS. FALL PRECAUTIONS IN PLACE AND NURSING WILL CONTINUE TO MONITOR.
[2019-05-31 19:30] VITALS: BP 134/84
--- NOTE | 2019-06-01 00:45 | NUR ---
PT ALERT AND ORIENTED X 4, FORGETFUL. LEFT SIDED WEAKNESS. PT TOOK HS MEDS IN APPLESAUCE WITHOUT DIFFICULTY. PT DENIES PAIN OR DISCOMFORT. BED ALARM ON FOR SAFETY. PT APPEARS TO BE SLEEPING ON HOURLY ROUNDS.
[2019-06-01 07:30] VITALS: BP 146/79
--- NOTE | 2019-06-01 09:57 | NUR ---
ASSUMED CARE OF PT AT 0715. PT IS A&OX4, FORGETFUL, VITAL SIGNS ARE STABLE. DENIES PAIN, WORKIING WITH NURSING STAFF ON AMBULATION AND TRANSFERS. UP FOR ALL MEALS WITH 100% SUPERVISION AT ALL MEALS. TURN AND REPOSITION Q2H WITH TOILETING. FALL PRECAUTIONS IN PLACE. NURSING WILL CONTINUE TO MONITOR.
[2019-06-01 19:29] VITALS: BP 124/63
--- NOTE | 2019-06-01 22:28 | NUR ---
PT ASSESSMENT DONE AND VSS. MED GIVEN ORDERED AND WELL TOLERATED. FALL PRECAUTIONS IN PLACE. SLEEPING. WILL CONTINUE TO MONITOR.
[2019-06-02 07:10] VITALS: BP 135/70
--- NOTE | 2019-06-02 10:58 | NUR ---
ASSUMED CARE OF PT AT 0715. PT IS A&OX4, FORGETFUL, VITAL SIGNS ARE STABLE. DENIES PAIN AND PARTICIPATED IN SCHEDULED THERAPIES. UP FOR ALL MEALS WITH 100% SUPERVISION AT ALL MEALS. FALL PRECAUTIONS IN PLACE AND NURSING WILL CONTINUE TO MONITOR.
--- NOTE | 2019-06-02 18:14 | NUR ---
I have reviewed the documentation by CÉSAR BROWNING from 06/02/19 to 06/02/19 and I concur with it. MARJORIE STEVEN
[2019-06-02 19:00] VITALS: BP 111/85
--- NOTE | 2019-06-02 21:50 | NUR ---
PT ASSESSMENT DONE AND VSS. MED GIVEN AND WELL TOLERATED. FALL PRECAUTIONS IN PLACE. SLEEPING. WILL CONTINUE TO MONITOR.
[2019-06-03 08:30] VITALS: BP 123/81
--- NOTE | 2019-06-03 11:13 | NUR ---
ASSUMED CARE OF PT AT 0715. VSS ON RA. INCONT BLADDER EARLY THIS AM. OT ASSISTED PT WITH BATH. UP TO DINNING ROOM ATE BREAKFAST WITH SPEECH THERAPIST. PT IS ALERT AND ORIENTED TO PERSON, PLACE, AND TIME. UP WITH MIN ASSIST WITH A WALKER AND GAITBELL. PT DENIES PAIN AND PARTICIPTED IN THERAPIES. OFFERED SUPPORTIVE CARE. ENCOURAGED PT TO VOICE HER NEEDS. REASSESSMENT PER CHART. MEDS GIVEN ONE WITH APPLE SAUCE WITHOUT DIFFICULTY. DISCUSSED ABOUT CARE PLAN WITH PT. PT CONTINUE TO PARTICIPATE WITH THERAPY TOWARD DISCHARGE GOALS. FALL PRECAUTIONS IN PLACE AND NURSING WILL CONTINUE TO MONITOR.
--- NOTE | 2019-06-03 12:23 | NUR ---
team meeting, recommendation: [facility]gan 06/06/19, [facility], family unable to care for her at home.
--- NOTE | 2019-06-03 12:50 | NUR ---
raw material planner sent updates to Pj at [facility] and notified Pj to expect them. Patient likely to dc from hospital 06/06/19
--- NOTE | 2019-06-03 17:41 | NUR ---
I have reviewed the documentation by CÉSAR BROWNING from 06/03/19 to 06/03/19 and I concur with it. MARJORIE STEVEN
[2019-06-03 19:50] VITALS: BP 122/79
--- NOTE | 2019-06-04 01:28 | NUR ---
ASSESSMENT: PT REMAIN ALERT AND ORIENT TIMES THREE, FORGETFUL AT TIMES. DENIES PAIN. TOLERATING PO INTAKE. NO BM THIS SHIFT. SLOW PROGRESS TOWARDS DC GOALS, WILL CONTINUE TO MONITOR.
[2019-06-04 07:07] VITALS: BP 135/86
--- NOTE | 2019-06-04 11:39 | NUR ---
ASSUMED CARE OF PT AT 0715. VSS ON RA. REPORTS SLEPT GOOD. ASSISTED PT UP TO WC TO GO TO DINNING ROOM FOR BREAKFAST. WET PAD BUT NOT MUCH. OT ASSISTED PT WITH BATH AFTER BREAKFAST, PHYSICAL THERAPIST WALKED WITH PT. PT IS TIRED AND RESTING IN RECLINER NOW. PT IS ALERT AND ORIENTED TO PERSON, PLACE, AND TIME. UP WITH MIN ASSIST WITH A WALKER AND GAITBELL. PT DENIES PAIN AND PARTICIPTED IN THERAPIES. OFFERED SUPPORTIVE CARE. ENCOURAGED PT TO VOICE HER NEEDS. REASSESSMENT PER CHART. MEDS GIVEN ONE WITH APPLE SAUCE WITHOUT DIFFICULTY. DISCUSSED ABOUT CARE MATT WITH PT. PT CONTINUE TO PARTICIPATE WITH THERAPY TOWARD DISCHARGE GOALS. FAL PRECAUTIONS IN PLACE AND NURSING WILL CONTINUE TO MONITOR.
--- NOTE | 2019-06-04 12:44 | NUR ---
medical planner sent updates to [facility], patient discharging tomorrow 06/05/19. DP contacted Pj at [facility] to let her know.
--- NOTE | 2019-06-04 14:04 | NUR ---
Patient participated in community reintegration on 06/04/19 with SPEECH THERAPY. Refer to documentation by SPEECH THERAPY.
--- NOTE | 2019-06-04 15:03 | NUR ---
I have reviewed the documentation by EMIR KIRAN from 06/04/19 to 06/04/19 and I concur with it. KANDICE HOWARD, PT, DPT
--- NOTE | 2019-06-04 15:05 | NUR ---
Pt PARTICIPATED IN COMMUNITY REINTEGRATION ON 06/04/[address], PLEASE REFER TO ST DOCUMENTATION
[2019-06-04 19:30] VITALS: BP 108/79
--- NOTE | 2019-06-05 02:34 | NUR ---
ASSUMED CARE FROM DAY SHIFT TO MOURE TALKATIVE THIS EVENING CHEERFUL , MEDICATION TAKEN AND TOLERATED WELL, DISCUSSED PLAN OF CARE AND APPEARED TO UNDERSTAND . RESTED WELL THROGUHOUT HOURLY ROUNDS WILL CONITNUE WITH CURRENT PLAN OF CARE.
[2019-06-05 06:05] LABS: ABSOLUTE NEUTROPHILS 3.4 thou/uL (1.4-8.2); BASOPHILS 0.9 % (0.0-2.0); EOSINOPHILS 1.7 % (0.0-3.0); HEMATOCRIT 31.7 % (37.0-47.0); HEMOGLOBIN 10.4 gm/dL (12.0-15.0); LYMPHOCYTES 34.1 % (24.0-44.0); MCH 27.5 pg (26.0-34.0); MCHC 32.7 g/dL (28.0-37.0); MCV 84.2 fL (80.0-100.0); MONOCYTES 9.4 % (1.0-8.0); PLATELET COUNT 215 thou/uL (150-400); POLYS 53.9 % (36.0-66.0); RBC 3.77 mil/uL (4.20-5.00); RDW 15.1 % (10.5-14.5); WBC 6.3 thou/uL (4.0-11.0)
[2019-06-05 06:19] LABS: MAGNESIUM 1.8 mg/dL (1.8-2.4); POTASSIUM 3.8 mmol/L (3.5-5.1)
[2019-06-05 08:00] VITALS: BP 130/85
--- NOTE | 2019-06-05 11:04 | H ---
[facility] [place] [address] HISTORY AND PHYSICAL Name: JANAK RABAGO Room #: 504-1 ADM IN .R.#: [id number] Admission: 05/21/19 Attend Phys: Harry Grimes MD Discharge: Date of : 56 Report #: [id number] THIS REPORT FOR: //name// CC: Harry Grimes [facility] unknown DATE OF SERVICE: 05/21/2019 HISTORY AND PHYSICAL/POSTADMISSION PHYSICIAN EVALUATION HISTORY OF PRESENT ILLNESS: Please see the full admission note dictation. The patient had been originally admitted on 05/15/2019 with an ischemic CVA and malignant hypertension. She had elevated troponin with EKG changes of ischemia. MRI of the brain revealed multiple subacute infarcts of the anterior and mid MCA distribution. She subsequently developed worsening cognitive function and a repeat MRI of the brain revealed extension of the right frontal MCA distribution ischemic cerebrovascular accident. She was treated with heparin, Cardene drip and had been felt to be unsafe to swallow. She has since improved as far as her cognition. Overall, is swallowing better working with therapies and felt to be ready for acute in-hospital inpatient rehabilitation. From a cardiac standpoint, she was felt to have sustained a type 2 [place]. She is now admitted for acute inpatient rehabilitation. Again, please see the full admission note dictation. PHYSICAL EXAMINATION: GENERAL: She is a pleasant, small statured, thin 59-year-old -Tong[place] female. She is alert, definite latency to her responses with some word finding difficulties and some slurring of speech. HEENT: Facies appeared symmetric. CHEST: Sounded clear to auscultation. CARDIOVASCULAR: Regular rate and rhythm. ABDOMEN: Bowel sounds positive, nontender. GENITOURINARY AND RECTAL: Deferred. EXTREMITIES: She has functional range of motion of the upper extremities with some decreased coordination bilaterally. Moves the right upper extremity a little better than the left upper extremity, strength is probably a grade 4-/5. Lower extremity strength is probably a grade 3+/5. She does have decreased balance. Transfers are mod assist. Gait has been max assist 35 feet with a front-wheeled walker. She is on mechanical soft nectar thickened liquid diet. ASSESSMENT: A 59-year-old -Tongan female with the following problems: 1. Multiple cerebrovascular accidents. These include multiple right frontal lobe infarcts. 2. Malignant hypertension. 3. Elevated troponin with EKG changes. 4. Acute renal insufficiency. [facility] [address] [place] [address] HISTORY AND PHYSICAL Name: AJNAK RABAGO Room #: 504-1 ADM IN .R.#: [id number] Admission: 05/21/19 Attend Phys: Harry Grimes MD Discharge: Date of : 56 Report #: [id number] 5. Hypokalemia. 6. Coronary artery disease. 7. Hyperlipidemia. 8. Tobacco abuse. 9. Past history of a cerebrovascular accident, 08/20/2018 with left-sided defect. PLAN: The patient has been admitted for acute in-hospital inpatient rehabilitation. From a postadmission physician evaluation perspective, there are no relevant changes since the preadmission screening. Please see the above review of prior and current medical and functional conditions and comorbidities. Please see the patient's previous and current functional status. As far as risk of complications, the patient has multiple medical comorbidities as noted above. Initial plan of care involves the interdisciplinary acute inpatient rehabilitation program with goal of maximizing her functional independence, so she can hopefully return back to her prior living situation. Prognosis is reasonably good. Would anticipate a length of stay is probably at least 2-3 weeks. Potential barriers would include her multiple medical comorbidities and decreased functional status. She has been living at home with her daughter and hopefully we can progress her in therapies, so that she can return back to the home setting. <ELECTRONICALLY SIGNED> By: Harry Grimes MD 06/05/19 [id number] Harry Grimes MD /nt
--- NOTE | 2019-06-05 11:04 | PLAN ---
[facility] [address] [place] [address] REHAB UNIT PLAN OF CARE Name: JANAK RABAGO Room #: 504-1 ADM IN M.R.#: [id number] Admission: 05/21/19 Attend Phys: Harry Grimes MD Discharge: Date of : 56 Report #: [id number] THIS REPORT FOR: //name// CC: Harry Grimes [facility] unknown DATE OF SERVICE: 05/23/2019 PROGRESS NOTE AND OVERALL PLAN OF CARE SUBJECTIVE: The patient seen back today in followup. She appears alert, eating breakfast with speech therapy in the dining area. Moving her right upper extremity and appears to be feeding herself quite well. Temperature 36.6, pulse 71, respirations 18, blood pressure 129/77. She has been working in therapies with transfers at a mod assist level, gait is 50 feet mod assist with a front-wheeled walker. In occupational therapy, lower body dressing is max assist, upper body is mod assist. She is on a mechanical soft diet with thin liquids. ASSESSMENT: 1. Multiple cerebrovascular accidents. 2. Malignant hypertension. 3. Elevated troponin with EKG changes. 4. Acute renal insufficiency. 5. Hypokalemia. 6. Coronary artery disease. 7. Hyperlipidemia. 8. Tobacco abuse. 9. Prior history of cerebrovascular accident, 08/20/2018 with left-sided defect. PLAN: The overall plan of care is based on the preadmission screen, post-admission physician evaluation and information garnered from therapy assessments. 1. Estimated length of stay is probably at least 2 weeks, potentially longer. 2. Medical prognosis is reasonably good. 3. Anticipated interventions includes the interdisciplinary acute inpatient rehabilitation program. 4. Anticipated functional outcomes would be for the patient to become modified independent with transfers, mobility, ADLs, cognition, communication, so she can return back to the home setting. 5. Discharge destination would ideally back to the home setting where she was living with her daughter. 6. Expected therapy by discipline includes PT, OT and speech 1 hour per day [address] [address] REHAB UNIT PLAN OF CARE Name: JANAK RABAGO Room #: 504-1 ADM IN ..#: [id number] Admission: 05/21/19 Attend Phys: Harry Grimes MD Discharge: Date of : 56 Report #: [id number] each five days a week throughout the duration of the acute inpatient rehabilitation stay. <ELECTRONICALLY SIGNED> By: Harry Grimes MD 06/05/19 [id number] Harry Grimes MD /[facility]
--- NOTE | 2019-06-05 12:46 | NUR ---
ASSUMED CARE OF PT AT 0715. PT IS A&OX4 AND VITAL SIGNS ARE STABLE. THERAPIES EXPRESSED CONCERN THAT PT HAS HAD DECLINES. PT ASSESSED AND NO CHANGES FROM LAST WEEK NOTED. PROVIDER CONTACTED ABOUT CONCERNS AND ORDERS GIVEN TO OBTAIN UA AT THIS TIME. HAT IN TOILET AWAITING SAMPLE. PT PARTICIPATED IN SCHEDULED THERAPIES, DENIES PAIN. UP WITH 100% SUPERVISION FOR ALL MEALS. FALL PRECAUTIONS IN PLACE AND NURSING WILL CONTINUE TO MONITOR.
--- NOTE | 2019-06-05 15:42 | NUR ---
I have reviewed the documentation by EMIR KIRAN from 06/05/19 to 06/05/19 and I concur with it. KANDICE HOWARD, PT, DPT
[2019-06-05 19:23] LABS: URINE BILIRUBIN NEGATIVE (Negative); URINE BLOOD NEGATIVE (Negative); URINE CLARITY CLEAR; URINE COLOR YELLOW; URINE GLUCOSE-RANDOM* NEGATIVE (Negative); URINE KETONES NEGATIVE (Negative); URINE LEUKOCYTES-REFLEX TRACE (Negative); URINE NITRITE-REFLEX NEGATIVE (Negative); URINE PROTEIN (DIPSTICK) NEGATIVE (Negative); URINE UROBILINOGEN 0.2 E.U./dl (0.2-1.0)
[2019-06-05 20:12] VITALS: BP 129/96
--- NOTE | 2019-06-06 07:13 | NUR ---
progress pt a/o x4 forgetful at times. Fall precautions in place, hourly rounding completed. vss pt incontinent of urine x1, no bm this shift. denies pain. tolerating pureed diet and thin liquids with swallow precautions maintained. plan to dc today.
--- NOTE | 2019-06-06 08:19 | NUR ---
chart copy requested. pt to dc to [facility]. pt can go by wheel chair van. bedside nurse to call report to [phone].
[2019-06-06] MEDS ORDERED: XARELTO15 MG PO (08:33)
[2019-06-06] MEDS ORDERED: MELATONIN5 M1 PO (08:33)
[2019-06-06] MEDS ORDERED: FLONASE 0.05%50 MCG NASAL (08:33)
[2019-06-06] MEDS ORDERED: BAYER CHEWABLE81 MG PO (08:33)
[2019-06-06] MEDS ORDERED: NORVASC5 MG PO (08:33)
[2019-06-06] MEDS ORDERED: CLARITIN10 MG PO (08:33)
[2019-06-06] MEDS ORDERED: BENAZEPRIL HCL20 MG PO (08:33)
[2019-06-06 09:41] VITALS: BP 139/86
[2019-06-06] MEDS ORDERED: NICOTINE TRANSD21 M1 TRANSDERM (09:45)
--- NOTE | 2019-06-06 10:32 | NUR ---
ASSUMED CARES AT 0700. PT IN BED VERY SLEEPY, LETHARGIC. WOKEUP AT 0830, A/O*4, FORGETFUL. SOFT SPOKEN AND CONTINUES TO HAVE DELAYED RESPONSES. DENIES PAIN. VITALS REMAIN STABLE. MRI DONE THIS AM, AWAITING RESULTS. PT CONTINUES TO BE INCONTINENT OF BLADDER, CHANGED AND NICHOLAS CARE COMPLETED. PT ATE 95% OF HER BREAKFAST THIS AM, SUPERVISION PROVIDED WITH ALL MEALS. UP WITH 1 MOD ASSIST, PIVOT TRANSFERS. PT TO DISCHARGE THIS AFTERNOON, WILL CALL REPORT TO RECEIVING FACILITY. Q1H VISUAL CHECKS. CALL LIGHT WITHIN REACH. FALL PRECAUTIONS IN PLACE
--- NOTE | 2019-06-06 13:50 | NUR ---
DISCHARGE PLANNED FOR TODAY. PATIENT DISCHARGING TO [facility]. PENDING NEUROLOGY CLEARNCE. WILL FACILITATE DISCHARGE ONCE PATIENT HAS BEEN CLEARED. UNIT CM TO NOTIFY [facility] ADMISSIONS. SHOULD PATIENT NOT DISCHARGE TODAY AND DISCHARGE OVER THE WEEKEND, PLEASE CALL [facility] [phone], ASK FOR WEEKEND DISCHARGE [facility]. THEY WILL ASSIST IN PATIENT DISCHARGE AND TRANSPORTATION. YOU MAY ALSO CALL [facility] [phone] TO ARRANGE TRANSPORTATION, PLEASE LET [facility] KNOW THAT THEY ARE TO BILL [facility] FOR TRANSPORTATION FEE. PLEASE FAX COMPLETED DISCHARGE ORDERS TO [phone]. THANK YOU.
== END 2019-06-06 17:05 | DRG 56 ==
PROVIDERS: Hospitalist; Nurse Practitioner; ADMIT Physical Medicine & Rehabilitation
DX: I69.354 Hemiplegia and hemiparesis following cerebral infarction affecting left non-dominant side (principal); I63.9 Cerebral infarction, unspecified; N17.9 Acute kidney failure, unspecified; E87.6 Hypokalemia; I25.10 Atherosclerotic heart disease of native coronary artery without angina pectoris; R41.0 Disorientation, unspecified; E78.5 Hyperlipidemia, unspecified; F01.50 Vascular dementia, unspecified severity, without behavioral disturbance, psychotic disturbance, mood disturbance, and anxiety; R13.10 Dysphagia, unspecified; I69.398 Other sequelae of cerebral infarction; R26.9 Unspecified abnormalities of gait and mobility; N18.9 Chronic kidney disease, unspecified; I12.9 Hypertensive chronic kidney disease with stage 1 through stage 4 chronic kidney disease, or unspecified chronic kidney disease; R53.81 Other malaise; K59.00 Constipation, unspecified; N32.81 Overactive bladder; R29.810 Facial weakness; Z87.891 Personal history of nicotine dependence; Z95.5 Presence of coronary angioplasty implant and graft
CPT/HCPCS: 10112